=== PATIENT | female | born 1975 | race Caucasian/White ===

== ENCOUNTER 2020-04-06 12:32 | Emergency (ER) | payer OTHER, SELFPAY ==
[2020-04-06] VITALS (14 sets, daily range): BP systolic 120–168; BP diastolic 83–114; PULSE 94–97; RESP 20; TEMP 37.1; O2SAT 99–100
--- NOTE | 2020-04-06 12:38 | ECG_ITS ---
Measurements Intervals [place] Rate: 91 P: 66 AL: 175 QRS: 62 QRSD: 83 T: 50 QT: 358 QTc: 442 Interpretive Statements SINUS RHYTHM NORMAL ECG Electronically Signed On 04-06-2020 13:02:22 CDT by Ward Garcia D.O.
[2020-04-06 12:50] LABS: Basophils Absolute Auto 0.1 K/mm3 (0.0-0.1); Basophils Percent Auto 0.7 % (0.2-1.2); Hemoglobin 12.4 g/dL (12.0-15.0); Immature Granulocyte Absolute 0.02 K/mm3 (0.00-0.031); Immature Granulocyte Percent A 0.2 % (0-0.5); Lymphocytes Percent Auto 36.4 % (18.3-44.2); Mean Corpuscular HGB Conc 34.4 g/dl (32-36); Mean Corpuscular Hemoglobin 30.7 pg (26-34); Mean Corpuscular Volume 89.1 fl (80-100); Mean Platelet Volume 9.8 fl (7.4-10.4); Monocytes Absolute Auto 0.5 K/mm3 (0.1-0.6); Neutrophils Absolute Auto 6.2 K/mm3 (1.3-6.7); Neutrophils Percent Auto 57.7 % (45.5-73.1); Platelet Count Result 291 k/mm3 (150-375); Red Blood Count 4.04 M/mm3 (4.2-5.4); White Blood Count 10.7 K/mm3 (4.5-10.0)
[2020-04-06 13:02] LABS: Alanine Aminotransferase 16 U/L (4-35); Albumin Level 4.3 g/dL (3.5-5.1); Alkaline Phosphatase 73 U/L (38-126); Aspartate Amino Transferase 16 U/L (14-36); Bilirubin,Total 0.1 mg/dL (0.2-1.3); Blood Urea Nitrogen 24 mg/dL (7-17); Calcium 8.7 mg/dL (8.4-10.2); Carbon Dioxide 19 mmol/L (22-30); Chloride 101 mmol/L (98-107); Estimated CRCL calculation 115 ml/min; Estimated Glomerular Filt Rate > 60; Glucose 388 mg/dL (65-105); Potassium 4.2 mmol/L (3.4-5.0); Sodium 129 mmol/L (137-145)
--- NOTE | 2020-04-06 14:01 | PC.NURSE ---
Pt states she has a lump to the L breast x 2 months. Pt states since finding the lump she has had generalized weakness and fatigue. Pt states at work today she felt like she was going to have syncopal episode. Pt states she has pain increased as day progresses. Pt states her energy level decreases with activity as well. Pt has scheduled mammogram and diagnostic US next week.
[2020-04-06] MEDS: SODIUM CHLORIDE 0.9% IV 1,000 ML 999 ML IV CONT (14:51)
--- NOTE | 2020-04-06 15:05 | ED.WEAKNESS ---
HPI - Weakness General Chief complaint: Weakness Stated complaint: near syncope, weakness Time Seen by Provider: 04/06/20 14:10 History of Present Illness HPI Narrative: Patient is a 45-year-old female who presents the ER with weakness. Reports twice today she felt like she could potentially pass out because her vision started to get dark. At no time was having chest pain/racing heart/shortness of breath. She reports over the last couple months she has had a lump in her left breast and when it starts to hurt it causes her to feel weak. She saw her primary care doctor couple days ago and will be getting a mammogram in 1 week. Reports 2 great aunts with breast cancer but no immediate family members. No lumps in her armpit or unintentional weight loss. Patient is diabetic and reports she takes her medications about 3 times a week when she feels like her sugar could potentially be high. Her glucometer is missing a piece so she does not check her sugars regularly. No polyuria/polydipsia. Related Data Allergies Allergy/AdvReac Type Severity Reaction Status Date / Time No Known Allergies Allergy Verified 09/16/19 12:28 Review of Systems Review of Systems: All systems reviewed & are unremarkable except as noted in HPI and below Constitutional: Constitutional: Denies chills, Reports fatigue, Denies fever(s) and Reports weakness ENT: Denies nasal congestion and Denies sore throat Cardiovascular: Cardiovascular: Denies chest pain and Denies radiating jaw, neck or arm pain Respiratory: Respiratory: Denies cough, Denies dyspnea and Denies wheezing Gastrointestinal: Gastrointestinal: Denies abdominal pain, Denies diarrhea, Denies nausea and Denies vomiting Integumentary/Breasts: Skin/Breast: Reports breast pain, Reports breast mass and Denies erythema PMFSH Past Medical History Medical History (Updated 04/06/20 @ 16:42 by Red Estes MD) Diabetes mellitus Peripheral neuropathy Surgical History Surgical History (Updated 04/06/20 @ 15:08 by Red Estes MD) No pertinent past surgical history Social History Social History (Updated 04/06/20 @ 15:08 by Red Estes MD) Smoking status: Current every day smoker Exam Narrative: Exam Narrative: GENERAL: Well-appearing, well-nourished, and in no acute distress. HEAD: Normocephalic, atraumatic. ENT: Mucous membranes moist. CHEST: Clear to auscultation. No respiratory distress. HEART: Regular rate and rhythm. Normal peripheral pulses. ABDOMEN: Soft, nontender, nondistended. EXTREMITIES: Normal range of motion. No edema. SKIN: Warm, dry, no rash. NEURO: Alert and oriented x3. Course Course Emergency Course: Informed of results. Patient reports she is missing some needles for her injection pen but does not know what kind needle she needs nor does she know what kind of injection pen she has. Discussed she should talk to her PCP about managing her blood sugar. Hydrated. D/c home. Vital Signs Vital signs: Vital Signs Temperature 98.7 F 04/06/20 12:35 Pulse Rate 97 04/06/20 12:35 Respiratory Rate 20 04/06/20 12:35 Blood Pressure 122/106 H 04/06/20 12:35 Pulse Oximetry 100 04/06/20 12:35 Temperature 98.7 F 04/06/20 12:35 Pulse Rate 96 04/06/20 16:15 Respiratory Rate 04/06/20 12:35 Blood Pressure 168/101 H 04/06/20 16:15 Pulse Oximetry 100 04/06/20 15:16 MDM - Weakness Lab Data Result diagrams: 04/06/20 12:42 04/06/20 12:42 Labs: Lab Results 04/06/20 04/06/20 Range/Units 12:42 12:42 WBC 10.7 H (4.5-10.0) K/mm3 RBC 4.04 L (4.2-5.4) M/mm3 Hgb 12.4 (12.0-15.0) g/dL Hct 36.0 L (37.0-47.0) % MCV 89.1 (80-100) fl MCH 30.7 (26-34) pg MCHC 34.4 (32-36) g/dl RDW 12.0 (11.5-14.5) % Plt Count 291 (150-375) k/mm3 MPV 9.8 (7.4-10.4) fl Immature Gran % (Auto) 0.2 (0-0.5) % Neut % (Auto) 57.7 (45.5-73.1) % Lymph % (Auto) 36.4 (18
== END 2020-04-06 17:00 | disposition home or self-care (01) ==
PROVIDERS: General Practice; Emergency Provider Emergency Medicine; PCP Family Medicine
DX: E11.65 Type 2 diabetes mellitus with hyperglycemia (principal); E11.42 Type 2 diabetes mellitus with diabetic polyneuropathy; F17.200 Nicotine dependence, unspecified, uncomplicated
CPT/HCPCS: 36415; 80053; 85025; 93005; 96360; 99283; J7030

== ENCOUNTER 2020-07-09 07:49 | Emergency (ER) | payer OTHER, SELFPAY ==
--- NOTE | ~2020-07-09 | CT_ITS ---
EXAMINATION: CTA chest PE protocol DATE: 07/09/2020 09:30 INDICATION: Chest pain. Shortness of breath. Elevated d-dimer. TECHNIQUE: Computed tomography (CT) pulmonary angiogram of the chest was performed with 100 mL Omnipa que-350 intravenous contrast. Additional 3D reconstructions utilizing coronal maximum intensity proje ction (MIP) were performed. The dose-length product was 235.01 mGy-cm. COMPARISON: None FINDINGS: Excellent contrast opacification of the pulmonary arteries. There is mild streak artifact from dense contrast in the superior vena cava and right atrium. Animal scattered respiratory motion artifact whi ch does not significantly limit evaluation. No pulmonary embolism. No pneumonia, pulmonary edema, ple ural effusion or pneumothorax. Heart size is normal. No pericardial effusion. No pathologically enlar ged thoracic lymphadenopathy. Cholecystectomy clips at the gallbladder fossa. Visualized upper abdome n is otherwise unremarkable. Minimal thoracic spondylosis. IMPRESSION: 1. No pulmonary embolism or other acute cardiopulmonary disease. Reviewed, dictated and finalized at location A.
--- NOTE | ~2020-07-09 | XR_ITS ---
EXAMINATION: XR chest 1V portable EXAM DATE: 07/09/2020 08:36 INDICATION: TECHNIQUE: Portable AP frontal chest x-ray was obtained. Comparison is made to prior examination from 12/06/2018. FINDINGS: The lungs are clear. There are no pleural effusions. The cardiomediastinal silhouette is within normal limits. There is no pneumothorax suspected. The bones and soft tissues are unremarkab le. IMPRESSION: No acute cardiopulmonary findings. Reviewed, dictated and finalized at location A.
--- NOTE | 2020-07-09 07:55 | ECG_ITS ---
Measurements Intervals [place] Rate: 98 P: 71 [place]: 178 QRS: 66 QRSD: 89 T: 59 QT: 358 QTc: 458 Interpretive Statements SINUS RHYTHM NORMAL ECG Electronically Signed On 07-09-2020 9:47:48 CDT by Ward Garcia D.O.
[2020-07-09 07:56] VITALS: BP 145/88; PULSE 97; RESP 17; TEMP 36.8; O2SAT 100
[2020-07-09 08:42] LABS: Basophils Percent Auto 0.5 % (0.2-1.2); Hematocrit 34.1 % (37.0-47.0); Hemoglobin 12.1 g/dL (12.0-15.0); Immature Granulocyte Absolute 0.03 K/mm3 (0.00-0.031); Immature Granulocyte Percent A 0.3 % (0-0.5); Lymphocytes Absolute Auto 2.15 K/mm3 (0.9-3.2); Lymphocytes Percent Auto 24.6 % (18.3-44.2); Mean Corpuscular HGB Conc 35.5 g/dl (32-36); Mean Corpuscular Hemoglobin 31.1 pg (26-34); Mean Corpuscular Volume 87.7 fl (80-100); Mean Platelet Volume 9.8 fl (7.4-10.4); Monocytes Absolute Auto 0.4 K/mm3 (0.1-0.6); Neutrophils Absolute Auto 6.2 K/mm3 (1.3-6.7); Neutrophils Percent Auto 70.6 % (45.5-73.1); Platelet Count Result 321 k/mm3 (150-375); Red Blood Count 3.89 M/mm3 (4.2-5.4); Red Cell Distribution Width 11.9 % (11.5-14.5); White Blood Count 8.7 K/mm3 (4.5-10.0)
[2020-07-09 08:50] LABS: Prothrombin Time 12.8 Seconds (11.1-14.7)
[2020-07-09 08:51] LABS: Partial Thromboplastin Time 26.3 SECONDS (22.3-36.8)
[2020-07-09 08:51] LABS: Anion Gap 8 mmol/L (8-16); Blood Urea Nitrogen 11 mg/dL (7-17); Carbon Dioxide 19 mmol/L (22-30); Chloride 105 mmol/L (98-107); Estimated CRCL calculation 119 ml/min; Estimated Glomerular Filt Rate > 60; Glucose 307 mg/dL (65-105); Potassium 4.2 mmol/L (3.4-5.0); Sodium 132 mmol/L (137-145)
[2020-07-09 08:53] LABS: D Dimer 0.51 ug/mL (<0.48)
--- NOTE | 2020-07-09 09:02 | ED.SOB ---
HPI - SOB/Dyspnea General Chief Complaint: Shortness of Breath/Dyspnea Stated Complaint: SOB Time Seen by Provider: 07/09/20 07:56 Source: patient Mode of arrival: EMS Limitations: no limitations History of Present Illness HPI Narrative: This patient is a 45 year old female with history DM, COPD who presents for evaluation of left chest pain and sob. She reports she chronically has sob. This morning at work she was runny back and forth. She noticed that she was having increasing sob. She then developed sudden onset left axilla pain described as tightness. She reports she thinks she passed out. She states she now has tenderness to her left axilla and she feels like she can't catch her breath. She denies fever, chills, cough, nausea, vomiting or diarrhea. Pertinent past history: COPD Related Data Allergies Allergy/AdvReac Type Severity Reaction Status Date / Time No Known Allergies Allergy Verified 09/16/19 12:28 Review of Systems Review of Systems: All systems reviewed & are unremarkable except as noted in HPI and below Constitutional: Constitutional: Denies chills and Denies fever(s) Cardiovascular: Cardiovascular: Reports chest pain Respiratory: Respiratory: Denies cough and Reports dyspnea Gastrointestinal: Gastrointestinal: Denies abdominal pain, Denies nausea and Denies vomiting PMFSH Past Medical History Medical History (Updated 07/09/20 @ 19:13 by Mayra Brewster MD) Diabetes mellitus Peripheral neuropathy Surgical History Surgical History (Updated 04/06/20 @ 15:08 by Red Estes MD) No pertinent past surgical history Social History Social History (Updated 04/06/20 @ 15:08 by Red Estes MD) Smoking status: Current every day smoker Gender identity (if verbalized by the patient): Female Exam Narrative: Exam Narrative: GENERAL: Well-appearing, well-nourished, and in no acute distress. HEAD: Normocephalic, atraumatic EYES: PERRLA and EOMI, conjunctiva clear without discharge THROAT:Mucous membranes moist, Oropharynx normal without erythema, exudate, peritonsillar swelling or fluctuance NECK: Supple, without lymphadenopathy or mass RESPIRATORY: No respiratory distress, Airway patent, Respirations non-labored, Clear to auscultation without rales, rhonchi or wheeze HEART: Regular rate and rhythm. No murmur heard. Normal peripheral pulses. ABDOMEN: Soft, nontender, nondistended, normal active bowel sounds. No masses. No rebound or guarding, No organomegaly. EXTREMITIES: No edema, normal strength with full range of motion. SKIN: Warm, dry, normal color without rash NEURO: Alert and oriented x3. CN 2-12 grossly intact. No focal deficits. PSYCH: Normal mood and affect. Course Reevaluation(s) Reevaluation #1: Patient states she wants to leave and she does not like it here. I have explained that it is recommended for her to get a 3 hour troponin for evaluation of her chest pain and syncope. She states she still wants to leave and she is signing AMA. Date: 07/09/20 Time: 12:00 Vital Signs Vital signs: Vital Signs Temperature 98.2 F 07/09/20 07:56 Pulse Rate 97 07/09/20 07:56 Respiratory Rate 17 07/09/20 07:56 Blood Pressure 145/88 H 07/09/20 07:56 Pulse Oximetry 100 07/09/20 07:56 Temperature 98.2 F 07/09/20 07:56 Pulse Rate 71 07/09/20 11:08 Respiratory Rate 18 07/09/20 11:08 Blood Pressure 147/85 H 07/09/20 11:08 Pulse Oximetry 100 07/09/20 11:08 MDM - SOB/Dyspnea Lab Data Attestation: I reviewed the patient's lab results. Result diagrams: 07/09/20 08:30 07/09/20 08:30 Labs: Lab Results 07/09/20 07/09/20 07/09/20 Range/Units 08:29 08:29 08:30 WBC 8.7 (4.5-10.0) K/mm3 RBC 3.89 L (4.2-5.4) M/mm3 Hgb 12.1 (12.0-15.0) g/dL Hct 34.1 L (37.0-47.0) % MCV 87.7 (80-100) fl MCH 31.1 (26-34) pg MCHC 35.5 (32-36) g/dl RDW 11.9 (11.5-14.5) % Pl
[2020-07-09 09:03] LABS: Troponin I < 0.012 ng/mL (0.000-0.034)
[2020-07-09 11:08] VITALS: BP 147/85; PULSE 71; RESP 18; O2SAT 100
--- NOTE | 2020-07-09 11:28 | PC.NURSE ---
of pt came out into hallway and yelled DOES ANYONE WORK HERE ??? This RN into pts room to see what is needed. Pt states that those people came and took me to Xray and took my nurse button and took everything off of me and didnt put it back on . This RN informed charge nurse of this.l Pt had a portable Xray so pt was never taken out of room. This RN into room to inform pt that we are still waiting on labs and for her CTScan. pt states ok, honey . Pts again into hallway stating that his is wanting to leave because she is not happy with this visit. Pt states that Dr. Brewster asked pt is she did narcotics and looked at pts mouth when she said it. Pt states that no one has been in the room to inform her of anything. She feels like no one is taking her seriously. This Rn informed both charge nurse and Dr. Brewster of this.
--- NOTE | 2020-07-09 11:45 | PC.NURSE ---
Pt took out own IV
== END 2020-07-09 11:45 | disposition left against medical advice (07) ==
LOC: ANHED 08:29
PROVIDERS: Emergency Provider General Practice; PCP Family Medicine
DX: R07.9 Chest pain, unspecified (principal); R55 Syncope and collapse; F17.200 Nicotine dependence, unspecified, uncomplicated; E11.42 Type 2 diabetes mellitus with diabetic polyneuropathy; J44.9 Chronic obstructive pulmonary disease, unspecified
CPT/HCPCS: 36415; 71045; 71275; 80048; 84484; 85025; 85380; 85610; 85730; 93005; 99284; Q9967

== ENCOUNTER → 2021-02-19 00:13 | Outpatient (CLI) | payer OTHER, SELFPAY ==
[2021-02-19 20:46] LABS: SARS-CoV-2 RNA PCR Negative
== END ==
PROVIDERS: PCP Internal Medicine; Visit Provider Internal Medicine Gastroenterology
DX: Z01.812 Encounter for preprocedural laboratory examination (principal); Z20.822 Contact with and (suspected) exposure to COVID-19
CPT/HCPCS: C9803; U0003; U0005

== ENCOUNTER 2021-02-22 00:51 | Day surgery (SDC) | payer OTHER, SELFPAY ==
[2021-02-08 14:41] VITALS: BMI 21.8
[2021-02-22 10:49] VITALS: BP 136/84; PULSE 93; RESP 18; TEMP 36.6; O2SAT 100
[2021-02-22] MEDS: LACTATED RINGERS 1,000 ML 150 ML IV CONT (11:02)
[2021-02-22 11:11] LABS: Glucose Point of Care 217 (65-105)
--- NOTE | 2021-02-22 11:23 | WPDANESEPPF ---
Anes - Initial Pre Proc Eval Procedure: Operation Date: 02/22/21 11:30 Proposed Procedures p Esophagogastroduodenoscopy & Colonoscopy - Gagan Law MD Date/Time: 02/22/21 11:23 Surgeon: Gagan Law MD Pre Op Diagnosis: Constipation, Dysphagia Patient Data Age: 45 Gender: F Height: 6 ft Weight: 71.5 kg Last Vital Signs Temp 97.8 F 02/22/21 10:49 Pulse 93 02/22/21 10:49 Resp 18 02/22/21 10:49 BP 136/84 02/22/21 10:49 Pulse Ox 100 02/22/21 10:49 Allergies Allergy/AdvReac Type Severity Reaction Status Date / Time Sulfa (Sulfonamide Allergy Intermediate swelling Verified 02/08/21 14:38 Antibiotics) Home Medications Medication Instructions Recorded Confirmed Type bevacizumab 25 mg/mL intravenous 25 mg INTRAVITREAL [id number] 11/13/20 02/08/21 History solution blood sugar diagnostic #100 ea 11/13/20 01/31/21 Rx blood-glucose meter #1 ea 11/13/20 01/31/21 Rx hrsftywpbx-gfaobsaezmcfz-pstruhnl 1 cap PO Q6H PRN 11/13/20 02/08/21 History 50 mg-325 mg-40 mg capsule tizanidine 2 mg tablet 2 mg PO BID #60 tablet 12/18/20 02/08/21 Rx ipratropium bromide 17 1 puff INHALATION BID #12.9 g 02/19/21 Rx mcg/actuation HFA aerosol inhaler lancets 28 gauge #100 ea 02/19/21 Rx metformin 1,000 mg tablet,extended 1,000 mg PO QPM 30 Days #30 tablet 02/19/21 Rx release 24hr pantoprazole 40 mg tablet,delayed 40 mg PO QAM #30 tablet 02/19/21 Rx release Laboratory Tests 02/22/21 11:02 POC Capillary Glucose 217 mg/dl H mg/dl (65-105) Patient hx anesthesia problems: none Family hx anesthesia problems: none PMFSH Past Medical History Medical History (Updated 01/31/21 @ 08:51 by Jimbo Patterson MD) Adhesive capsulitis of both shoulders Diabetes mellitus Hemoglobin A1C between 7% and 9% indicating borderline diabetic control last noted glucose was 388 march 2020 Peripheral neuropathy Surgical History Surgical History No pertinent past surgical history Family History Family History Sibling Heart disease Social History Social History Years smoked: 10 Smoking status: Current every day smoker Tobacco type: cigars Alcohol intake: current Drinks per week: 1 Substance use: current Substance use type: marijuana Other substance usage details: 3x a month Living arrangements: with family Gender identity (if verbalized by the patient): Female Spiritual care concerns: No Anes - Eval Final PreProcedure Day of Procedure 02/22/21 11:23 Patient weight: normal Heart: regular rate and rhythm Lungs: clear to auscultation Airway: Mallampati scale class II Neurological: alert and oriented Last oral intake: >/= 8 hours ASA classification: III Emergent: no Anesthetic plan: proceed Anesthesia type and monitoring: general GIVS and standard monitoring Informed Consent: The patient's anesthetic plan and its attendant risks and benefits were discussed with the patient/family/POA. Questions were solicited and answers provided to the satisfaction of the patient/family/POA.
--- NOTE | 2021-02-22 11:38 | PM.HPGS ---
History of Present Illness History of Present Illness Consent: Risks, benefits, and alternatives have been discussed and questions answered. Patient agrees to proceed with procedure. Chief complaint: Constipation, Dysphagia Narrative: Shweta Ibarra is a 45 year old female with chronic constipation and gerd on protonix, never had scopes Review of Systems Constitutional: Constitutional: Denies headache(s) and Denies weakness Eyes: Eyes: Denies blurry vision ENT: Reports Normal hearing present, Denies headache(s) and Denies neck pain Cardiovascular: Cardiovascular: Denies chest pain and Denies dyspnea Respiratory: Respiratory: Denies dyspnea Gastrointestinal: Gastrointestinal: Reports no additional gastrointestinal complaints Genitourinary: Genitourinary: Denies dysuria Musculoskeletal: Musculoskeletal: Denies neck pain Integumentary/Breasts: Skin/Breast: Denies dry skin Neurologic: Reports Normal hearing present, Denies headache(s) and Denies weakness Psychiatric: Psychiatric: Denies anxiety Endocrine: Endocrine: Denies change in body appearance Hematologic/Lymphatic: Hematologic/Lymphatic: Denies easy bleeding Allergic/Immunologic: Allergic/Immunologic: Denies urticaria PMF Past Medical History Medical History (Updated 02/22/21 @ 11:42 by Gagan Law MD) Adhesive capsulitis of both shoulders Constipation Diabetes mellitus GERD (gastroesophageal reflux disease) Hemoglobin A1C between 7% and 9% indicating borderline diabetic control last noted glucose was 388 march 2020 Peripheral neuropathy Surgical History Surgical History No pertinent past surgical history Family History Family History Sibling Heart disease Social History Social History Years smoked: 10 Smoking status: Current every day smoker Tobacco type: cigars Alcohol intake: current Drinks per week: 1 Substance use: current Substance use type: marijuana Other substance usage details: 3x a month Living arrangements: with family Gender identity (if verbalized by the patient): Female Spiritual care concerns: No Meds Home Medications and Allergies Home Medications Medication Instructions Recorded Confirmed Type bevacizumab 25 mg/mL intravenous 25 mg INTRAVITREAL [id number] 11/13/20 02/08/21 History solution blood sugar diagnostic #100 ea 11/13/20 01/31/21 Rx blood-glucose meter #1 ea 11/13/20 01/31/21 Rx jjpsarydsy-jtznsvziogeta-uzllfiem 1 cap PO Q6H PRN 11/13/20 02/08/21 History 50 mg-325 mg-40 mg capsule tizanidine 2 mg tablet 2 mg PO BID #60 tablet 12/18/20 02/08/21 Rx ipratropium bromide 17 1 puff INHALATION BID #12.9 g 02/19/21 Rx mcg/actuation HFA aerosol inhaler lancets 28 gauge #100 ea 02/19/21 Rx metformin 1,000 mg tablet,extended 1,000 mg PO QPM 30 Days #30 tablet 02/19/21 Rx release 24hr pantoprazole 40 mg tablet,delayed 40 mg PO QAM #30 tablet 02/19/21 Rx release Allergies Allergy/AdvReac Type Severity Reaction Status Date / Time Sulfa (Sulfonamide Allergy Intermediate swelling Verified 02/08/21 14:38 Antibiotics) Vital Signs Vital Signs - 24 hr 02/22/21 10:49 Temperature 97.8 F Pulse Rate 93 Respiratory Rate 18 Blood Pressure 136/84 Pulse Oximetry 100 Exam Const: General: comfortable and no acute distress HENMT: General nose exam: Normal nares present Eyes: General: appearance normal, both eyes and all related structures Neck: Neck: no JVD Resp: Auscultation: clear to auscultation bilaterally Cardio: Rate: regular rate Rhythm: regular rhythm GI: Inspection: non-distended GI Palp: Yes Soft to palpation Skin: General skin exam: normal color Neuro: General: gait normal Speech: normal speech Extrem: General: normal to inspection Psych: Mental Status:
[2021-02-22] MEDS: BENZOCAINE (*SP) 60 ML SPRAY CAN (HURRICAINE) 1 SPRAY MUCOUS MEM (11:43)
[2021-02-22 12:20] VITALS: BP 94/56; PULSE 77; RESP 18; O2SAT 99
[2021-02-22 12:30] VITALS: BP 91/72; PULSE 84; RESP 22; O2SAT 100
[2021-02-22 12:40] VITALS: BP 116/73; PULSE 84; RESP 19; O2SAT 100
== END 2021-02-22 12:56 | disposition home or self-care (01) ==
PROVIDERS: PCP Internal Medicine; Visit Provider Internal Medicine Gastroenterology
PROC: 0DJ08ZZ Inspection of Upper Intestinal Tract, Via Natural or Artificial Opening Endoscopic (ICD-10-PCS; CPT 43235; principal; 2021-02-22 11:30)
DX: K21.9 Gastro-esophageal reflux disease without esophagitis (principal); K21.00 Gastro-esophageal reflux disease with esophagitis, without bleeding; K22.8 Other specified diseases of esophagus; K64.8 Other hemorrhoids; R13.19 Other dysphagia; K29.50 Unspecified chronic gastritis without bleeding; E11.42 Type 2 diabetes mellitus with diabetic polyneuropathy; F17.290 Nicotine dependence, other tobacco product, uncomplicated; F12.90 Cannabis use, unspecified, uncomplicated; Z79.84 Long term (current) use of oral hypoglycemic drugs
CPT/HCPCS: 45378; 43251; 43239; 82948; 88305; J2704; J7120